=== PATIENT | female | born 1965 | race African-American/Black ===

== ENCOUNTER 2021-04-11 17:20 | Emergency (ER) | payer BC ==
[~2021-04-11] VITALS: Ht 162.6 cm; Wt 78.9 kg
[2021-04-11 17:37] VITALS: BP 131/79
--- NOTE | 2021-04-11 17:45 | NUR ---
PT TO WAIT IN LOBBY
--- NOTE | 2021-04-11 17:45 | NUR ---
TIMBO JOHNSON EVALUATING PT IN LOBBY
[2021-04-11] MEDS ORDERED: IBUPROFEN 600 MG TAB PO ONE (17:50)
--- NOTE | 2021-04-11 18:05 | NUR ---
Pt brought back from RAD to bed 04 via w/c.
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
[2021-04-11] MEDS ORDERED: IBUP-1842 PO (18:18)
== END 2021-04-11 18:30 | disposition home or self-care (01) ==
LOC: MED 17:20
DX: S60.222A Contusion of left hand, initial encounter (principal); Z79.899 Other long term (current) drug therapy; V89.2XXA Person injured in unspecified motor-vehicle accident, traffic, initial encounter; Y93.89 Activity, other specified; Y92.89 Other specified places as the place of occurrence of the external cause; Y99.8 Other external cause status
CPT/HCPCS: 73130; 99283

== ENCOUNTER 2023-03-31 17:53 | Emergency (ER) | payer BC ==
[~2023-03-31] VITALS: Ht 172.7 cm; Wt 77.1 kg
[~2023-03-31 17:53] MED LIST: IBUP-1842 PO
[2023-03-31 18:27] VITALS: BP 127/81; PULSE 94; RESP 20; TEMP 97.6; O2SAT 99
[2023-03-31 21:06] LABS: BASOPHILS # (AUTO) 0.1 K/uL (0.00-0.22); BASOPHILS % (AUTO) 0.5 % (0.0-2.0); EOSINOPHILS # (AUTO) 0.1 K/uL (0-0.4); HEMATOCRIT 38.5 % (36-48); HEMOGLOBIN 12.9 g/dL (12.0-16.0); LYMPHOCYTES % (AUTO) 29.3 % (20.5-51.1); MEAN CORPUSCULAR HEMOGLOBIN 29 pg (27-31); MEAN CORPUSCULAR HGB CONC 33 g/dL (33-37); MEAN CORPUSCULAR VOLUME 86.6 fL (80-94); MONOCYTES # (AUTO) 0.8 K/uL (0.8-1.0); MONOCYTES % (AUTO) 8.1 % (1.7-9.3); NEUTROPHILS # (AUTO) 6.3 K/uL (1.8-7.7); NEUTROPHILS % (AUTO) 61.1 % (42.2-75.2); PLATELET COUNT (AUTO) 310 K/uL (140-450); RED BLOOD CELL COUNT(AUTO) 4.45 MIL/uL (4.20-5.40); RED CELL DISTRIBUTION WIDTH 14.2 % (11.6-13.7); WHITE BLOOD COUNT (AUTO) 10.3 K/uL (4.8-10.8)
[2023-03-31 21:24] LABS: INR 0.97 (0.8-1.2); PARTIAL THROMBOPLASTIN TIME 27.8 secs (22-35.6); PROTHROMBIN TIME 10.2 secs (10.8-13.4)
[2023-03-31 21:27] LABS: ALBUMIN 4.3 g/dL (3.4-5.0); ANION GAP 11.5 (8-16); CALCIUM 10.2 mg/dL (8.5-10.1); CARBON DIOXIDE 26.4 mmol/L (21-32); CREATININE 0.9 mg/dL (0.6-1.3); POTASSIUM 3.9 mmol/L (3.5-5.1); TOTAL BILIRUBIN 0.5 mg/dL (0.0-1.0); TOTAL PROTEIN, SERUM 8.7 g/dL (6.4-8.2)
[2023-03-31 23:10] VITALS: BP 127/81; PULSE 94; RESP 20; TEMP 97.6; O2SAT 99
== END 2023-03-31 23:10 | disposition home or self-care (01) ==
LOC: MED 17:53
DX: M79.661 Pain in right lower leg (principal); Z79.899 Other long term (current) drug therapy
CPT/HCPCS: 36415; 80053; 85025; 85610; 85730; 93971; 99284